=== PATIENT | male | born 1950 | race Caucasian/White ===

== ENCOUNTER 2021-10-17 12:19 | Emergency (ER) | payer MEDICARE, OTHER ==
[2021-10-17] MEDS: Sodium Chloride 0.9% 1,000 ML IV ONE ×2 (13:25→16:30)
[2021-10-17] MEDS: cefTRIAXone 1 GM in Sodium Chloride 0.9% 50 ML IV ONE (13:27)
[2021-10-17 13:37] LABS: TROPONIN I HIGH SENSITIVITY 59.3 pg/ml (<=60.4)
[2021-10-17] MEDS: cefTRIAXone 1 GM Vial ONE (14:37)
[2021-10-17] MEDS: Enoxaparin 100 MG/1 ML Syringe SUBCUT ONE (15:28)
[2021-10-17] MEDS: Azithromycin 500 MG in Sodium Chloride 0.9% 250 ML IV ONE (17:22)
[2021-10-17] MEDS: Acetaminophen 500 MG Tab PO ONE (18:01)
[2021-10-17] MEDS: Aspirin 81 MG Tab.Chew PO ONE (19:07)
[2021-10-17 19:44] VITALS: BP 126/71; PULSE 94
== END 2021-10-17 21:37 ==
LOC: LB.ED 12:19
DX: I21.4 Non-ST elevation (NSTEMI) myocardial infarction (principal); J18.9 Pneumonia, unspecified organism; Z79.82 Long term (current) use of aspirin; Z79.899 Other long term (current) drug therapy; Z87.891 Personal history of nicotine dependence; Z20.822 Contact with and (suspected) exposure to COVID-19
CPT/HCPCS: 36415; 71045; 71260; 74177; 80053; 81001; 83605; 83880; 84484; 85025; 85379; 93005; 96365; 96372; 96375; 99285-25; A9270-GY; J0456; J0696; J1650; J3490; J7030; J7050; U0002